=== PATIENT | male | born 1980 | race Caucasian/White ===

== ENCOUNTER 2020-11-18 08:00 | Outpatient (CLI) | payer OTHER ==
[2020-11-18] MEDS ORDERED: NEXIUM20 MG PO (14:09)
[2020-12-11] MEDS ORDERED: NEXIUM20 MG PO (08:52)
[2020-12-12 09:35] VITALS: BMI 25.1
== END 2020-11-18 08:01 | disposition home or self-care (01) ==
LOC: D.OPS 08:00
PROVIDERS: ATTEND Nurse Practitioner Family
DX: S43.431A Superior glenoid labrum lesion of right shoulder, initial encounter (principal)

== ENCOUNTER 2020-12-12 08:16 | Day surgery (SDC) | payer OTHER ==
[~2020-12-12] VITALS: Ht 185.4 cm; Wt 86.2 kg
--- NOTE | ~2020-12-12 | OP ---
PATIENT NAME: BRIGHT POSEY MEDICAL RECORD: [id number] :84 LOCATION:[facility] ADMISSION DATE: SURGEON: ELISSA LOWE MD DATE OF OPERATION: 12/12/2020 PREOPERATIVE DIAGNOSIS: Superior labral anterior and posterior tear, right shoulder. POSTOPERATIVE DIAGNOSIS: Superior labral anterior and posterior tear, right shoulder. PROCEDURE PERFORMED: Right shoulder scope with SLAP repair. INDICATIONS FOR THE PROCEDURE: Mr. Posey is a 39-year-old male with history of right shoulder pain and weakness. 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 I talked to him about the injury and options for conservative versus surgical management. He has elected to proceed with the surgery for SLAP repair. Risks, benefits and alternatives of surgery were discussed with the patient and consent was obtained. DESCRIPTION OF PROCEDURE: The patient was met in the holding area where his identity and confirmation of procedure was performed. The right upper extremity was marked. He was taken to the operating room where he was placed supine on the operating table and anesthesia was administered. He was then positioned in the beach chair position. Extremities were positioned and padded appropriately. Right upper extremity was prepped and draped in the usual sterile fashion. The patient received preoperative antibiotics and timeout was performed prior to initiating the case. On initiation of the case, the subacromial space was infiltrated with 10 mL of 0.25% Marcaine with epinephrine. We then placed our posterior portal and inserted the camera into the shoulder joint. We then placed our anterior portal under direct visualization through the rotator cuff interval. Diagnostic shoulder arthroscopy was then performed. The biceps tendon was well attached at the superior labrum, but it did have an undersurface tear and the lorenzana of the labrum was sitting low over the superior aspect of the glenoid. There was some inflammation around the insertion of the biceps as well. The cartilage of the glenoid and humeral head were in good condition. The rotator cuff was intact. After some manipulation, we were able to visualize the tear and continued with our SLAP repair. A second superior anterior portal was placed. We then began preparing the glenoid using a spatula to elevate the labrum and soft tissues as well as a rasp around the edges. This was cleaned with a shaver. A third portal was placed laterally just posterior to the long head of the biceps tendon to assist with our placement of our superior posterior anchor. The MediSwipeion suture passer was then used to pass our #2 FiberWire suture through the posterior aspect of the labrum just behind the biceps attachment. We then brought these out through our lateral portal. Our drill guide was then inserted through the lateral portal. We drilled into the superior glenoid and placed a 2.9 PushLock anchor to secure the posterior aspect of the labrum. We then placed a second suture through the anterior aspect of the labrum just anterior to the biceps insertion using the Scorpion suture passer. We then used our superior anterior portal, placed our drill guide, drilled into the bone and then securely fastened this with the 2.9 PushLocks. This provided good reapproximation of labrum and this completed our surgery. Before and after images were obtained. Shoulder joint was irrigated thoroughly with saline. Our portal sites were then closed with nylon suture and a sterile dressing was placed. The patient was placed into an abduction sling, turned OPERATIVE REPORT [id number] PINOBRIGHT back over to anesthesia where he was awakened, extubated, and taken to recovery room in stable condition. POSTOPERATIVE PLAN: The patient is going to return home with his family today. He needs to remain in the sling at all times with instructions for no shoulder range of motion. We will plan to see him back in clinic in 2 weeks. COMPLICATIONS: None. ESTIMATED BLOOD LOSS: 5 mL. ANESTHESIA: General with peripheral nerve block. TRANSINT:[id number] Voice Confirmation ID: [id number] DOCUMENT ID: [id number] ELISSA LOWE MD CC: [id number] DICTATION DATE: 12/12/20 1520 [employer] GAS: 12/12/202109 [facility] 12/12/20 [id number] [place] [address]
[~2020-12-12 08:16] MED LIST: NEXIUM20 MG PO
[2020-12-12 09:35] VITALS: BP 150/89; Ht 185.4 cm; Wt 86.2 kg
== END 2020-12-12 16:35 | disposition home or self-care (01) ==
LOC: D.OPS 08:16
PROVIDERS: ATTEND Orthopaedic Surgery
DX: S43.431A Superior glenoid labrum lesion of right shoulder, initial encounter (principal); X58.XXXA Exposure to other specified factors, initial encounter; M25.511 Pain in right shoulder